=== PATIENT | female | born 1975 | race Two or more races ===

== ENCOUNTER 2024-04-06 11:30 | Inpatient (IN) | payer OTHER ==
[~2024-04-06] VITALS: Ht 162.6 cm; Wt 61.7 kg
[2024-04-06] MEDS ORDERED: IRON236 MG PO (12:49)
[2024-04-06 12:50] VITALS: BP 107/71
[2024-04-06] MEDS ORDERED: MULTIPLE VITAM1 EAC2 PO (12:50)
[2024-04-06] MEDS ORDERED: HEALTHY HEART1 EACH PO (12:50)
[2024-04-06 12:54] VITALS: BP 112/71
[2024-04-06 15:15] LABS: RH POSITIVE
[2024-04-09] MEDS ORDERED: POVIDONE-IODINE 118 ML BOTT TOP ONE (11:55)
[2024-04-09] MEDS ORDERED: CEFAZOLIN SODIUM 1,000 MG VIAL ONE (12:05)
[2024-04-09] MEDS ORDERED: METRONIDAZOLE/SODIUM CHLORIDE 500 MG/100 ML PIGGYBACK IV ONE (12:05)
[2024-04-09] MEDS ORDERED: HEMOSTATIC MATRIX 1 KIT KIT TOP ONE ×2 (13:21→13:45)
[2024-04-09] MEDS ORDERED: OxyCODONE HCL/APAP UD (PERCOCET) PO PRN (14:15)
[2024-04-09] MEDS ORDERED: ONDANSETRON HCL 2 MG/ML VIAL IV PRN (14:15)
[2024-04-09] MEDS ORDERED: MORPHINE SULFATE 4 MG/ML CARTRIDGE IV PRN (14:15)
[2024-04-09] MEDS ORDERED: RINGERS SOLUTION,LACTATED 1,000 ML IV SCH (14:15)
[2024-04-09] MEDS ORDERED: MORPHINE SULFATE 4 MG/ML VIAL IV ONE ×2 (15:25→16:10)
[2024-04-09 16:44] LABS: MEAN CELL VOLUME 90.1 fL (80.00-100.00); MEAN CORPUSCULAR HEMOGLOBIN 29.3 pg (27.00-32.0); MEAN CORPUSCULAR HGB CONC 32.6 g/dl (32.0-36.0); PLATELET COUNT 208 K/uL (150-450)
[2024-04-09 16:47] LABS: RED CELL DISTRIBUTION WIDTH 20.2 % (11.5-14.5)
[2024-04-09] MEDS ORDERED: GABAPENTIN 300 MG CAPSULE PO SCH (17:00)
[2024-04-09 17:14] LABS: ALBUMIN 3.2 gm/dL (3.4-5.0); CALCIUM 8.4 mg/dL (8.5-10.1); CREATININE SERUM 0.7 mg/dL (0.55-1.02); GFR 89.69; MAGNESIUM 1.8 mg/dL (1.8-2.4); PHOSPHOROUS 3.6 mg/dL (2.5-4.9); POTASSIUM 3.72 mEq/L (3.5-5.1)
[2024-04-09 17:18] VITALS: BP 107/71
[2024-04-09] MEDS ORDERED: KETOROLAC TROMETHAMINE 30 MG VIAL IM SCH (18:00)
[2024-04-09] MEDS ORDERED: FAMOTIDINE/PF 20 MG/2 ML VIAL IV PUSH SCH (21:00)
[2024-04-09] MEDS ORDERED: CEFAZOLIN SODIUM 1,000 MG VIAL IV SCH (21:00)
[2024-04-10] VITALS: BP 108/71
[2024-04-10 06:52] LABS: HEMATOCRIT 37.6 % (36.0-45.00); HEMOGLOBIN 12.5 g/dL (12.0-15.00); MEAN CELL VOLUME 89.3 fL (80.00-100.00); MEAN CORPUSCULAR HEMOGLOBIN 29.7 pg (27.00-32.0); MEAN CORPUSCULAR HGB CONC 33.2 g/dl (32.0-36.0); PLATELET COUNT 190 K/uL (150-450); RED BLOOD COUNT 4.21 M/uL (4.00-6.00)
[2024-04-10 07:20] LABS: ALBUMIN 2.8 gm/dL (3.4-5.0); CALCIUM 8.3 mg/dL (8.5-10.1); CREATININE SERUM 0.6 mg/dL (0.55-1.02); GFR 107.16; PHOSPHOROUS 3.4 mg/dL (2.5-4.9); POTASSIUM 4.31 mEq/L (3.5-5.1)
[2024-04-10 08:00] VITALS: BP 105/71
[2024-04-10] MEDS ORDERED: ENOXAPARIN SODIUM 40 MG/0.4 ML SYRINGE SUBCUTANEO SCH (09:00)
[2024-04-10] MEDS ORDERED: SIMETHICONE 125 MG CAPSULE PO SCH (17:00)
[2024-04-10 17:05] VITALS: BP 112/68
[2024-04-10 23:59] VITALS: BP 103/68; O2SAT 97
[2024-04-11 09:34] VITALS: BP 105/70; O2SAT 100
== END 2024-04-11 10:00 | disposition home or self-care (01) | DRG 743 ==
LOC: O/R 04-09 06:14 → OB/GYN 04-09 06:14
PROVIDERS: ADMIT Obstetrics & Gynecology Gynecologic Oncology; ATTEND Obstetrics & Gynecology Gynecologic Oncology
PROC: 0TN70ZZ Release Left Ureter, Open Approach (ICD-10-PCS; 2024-04-09)
PROC: 0TN60ZZ Release Right Ureter, Open Approach (ICD-10-PCS; 2024-04-09)
PROC: 0UT70ZZ Resection of Bilateral Fallopian Tubes, Open Approach (ICD-10-PCS; 2024-04-09)
PROC: 0UT90ZZ Resection of Uterus, Open Approach (ICD-10-PCS; principal; 2024-04-09 16:30)
DX: D25.1 Intramural leiomyoma of uterus (principal); D25.2 Subserosal leiomyoma of uterus